=== PATIENT | female | born 1985 | race Hispanic/Latino ===

== ENCOUNTER 2017-06-16 15:55 | Outpatient (CLI) | payer BC ==
--- NOTE | 2017-06-16 16:24 | XRay Report ---
XRAY LEFT KNEE FOUR VIEWS: 06/16/17 15:55:00 CLINICAL: Left knee pain. FINDINGS: Mild osteopenia. No fracture or dislocation. Joint spaces are normal. No joint effusion. The soft tissues are normal. IMPRESSION: Mild osteopenia but otherwise normal.
== END 2017-06-16 15:56 | disposition home or self-care (01) ==
LOC: SPVIMAG 15:55
PROVIDERS: ATTEND Orthopaedic Surgery Sports Medicine
DX: M85.862 Other specified disorders of bone density and structure, left lower leg (principal)